=== PATIENT | female | born 1985 | race African-American/Black ===

== ENCOUNTER 2024-02-26 07:49 | Emergency (ER) | payer MEDICAID ==
[~2024-02-26] VITALS: Ht 167.6 cm; Wt 127.0 kg
[~2024-02-26 07:49] MED LIST: ALBU05; DIPH25CA83
[2024-02-26] MEDS ORDERED: IPRATROPIUM BROMIDE (0.02%) 0.5MG/2.5ML NEB HHN STA (08:09)
[2024-02-26] MEDS ORDERED: DEXAMETHASONE 1MG TABLET PO ONE (08:15)
[2024-02-26 08:41] VITALS: BP 107/82; TEMP 37.05852
[2024-02-26 08:50] VITALS: PULSE 83; RESP 18; O2SAT 98
[2024-02-26] MEDS: IPRATROPIUM BROMIDE (0.02%) 0.5MG/2.5ML NEB HHN NR (08:50)
[2024-02-26] MEDS: ALBUTEROL (0.083%) 2.5MG/3ML NEB HHN SCH (08:51)
[2024-02-26] MEDS: DEXAMETHASONE 4MG TABLET PO NR (09:23)
[2024-02-26 09:38] VITALS: PULSE 91; RESP 16; O2SAT 99
[2024-02-26 10:20] VITALS: PULSE 92; RESP 18; O2SAT 96
== END 2024-02-26 10:46 | disposition home or self-care (01) ==
LOC: ER 07:49
DX: J45.901 Unspecified asthma with (acute) exacerbation (principal); F12.90 Cannabis use, unspecified, uncomplicated; Z98.890 Other specified postprocedural states
CPT/HCPCS: 71045; 94640; 94070; 99291; J8540; Z7610 ×3